=== PATIENT | female | born 2000 | race Caucasian/White ===

== ENCOUNTER 2023-08-05 09:42 | Emergency (ER) | payer OTHER ==
[2023-08-05] MEDS: Diphtheria,Pertussis(Acell),Tetanus Vaccine 0.5 ML Syringe IM ONE (11:57)
[2023-08-05] MEDS: Lidocaine 1% 10 ML MDV INJECT ONE (12:01)
[2023-08-05] MEDS: Acetaminophen/HYDROcodone 325-5 MG Tab PO ONE (12:58)
== END 2023-08-05 12:50 | disposition home or self-care (01) ==
LOC: JD.ED 09:42
DX: S01.352A Open bite of left ear, initial encounter (principal); S61.250A Open bite of right index finger without damage to nail, initial encounter; Z23 Encounter for immunization; F17.210 Nicotine dependence, cigarettes, uncomplicated; W54.0XXA Bitten by dog, initial encounter
CPT/HCPCS: 12001; 90471; 90715; 99283; A9270; J3490

== ENCOUNTER 2023-08-06 08:11 | Emergency (ER) | payer OTHER ==
[2023-08-06] MEDS: Ondansetron 4 MG/2 ML SDV IVPUSH ONE (09:11)
[2023-08-06] MEDS: Sodium Chloride 0.9% 10 ML Syringe FLUSH PRN (09:13)
[2023-08-06] MEDS: Sodium Chloride 0.9% 1,000 ML IV SCH (09:13)
[2023-08-06] MEDS: Ampicillin/Sulbactam Na 3 GM in Sodium Chloride 0.9% 100 ML IV ONE (09:14)
[2023-08-06 09:27] LABS: BASOPHILS PERCENT AUTO 0.2 % (0.0-1.0); EOSINOPHILS PERCENT AUTO 0.1 % (0.0-6.0); HEMATOCRIT 40.9 % (37.0-47.0); HEMOGLOBIN 14.1 gm/dl (12.0-16.0); IMMATURE GRAN ABSOLUTE AUTO 0.09 K/mm3 (0.00-0.05); IMMATURE GRAN PERCENT AUTO 0.5 % (0.0-0.4); LYMPHOCYTES ABSOLUTE AUTO 1.4 K/mm3 (1.0-4.8); LYMPHOCYTES PERCENT AUTO 7.4 % (24.0-44.0); MEAN CORPUSCULAR HEMOGLOBIN 28.8 pg (28.0-32.0); MEAN CORPUSCULAR HGB CONC 34.5 g/dl (32.0-36.0); MEAN CORPUSCULAR VOLUME 83.5 fl (83.0-99.0); MEAN PLATELET VOLUME 11.1 fl (9.4-12.3); MONOCYTES ABSOLUTE AUTO 1.7 K/mm3 (0.0-0.8); MONOCYTES PERCENT AUTO 8.6 % (0.0-8.0); NEUTROPHILS PERCENT AUTO 83.2 % (41.0-71.0); PLATELET COUNT,PLT 309 K/mm3 (150-400); WHITE BLOOD CELL COUNT,WBC 19.18 K/mm3 (3.9-11.3)
[2023-08-06 09:47] LABS: ANION GAP 15.7 (5-15); BUN/CREATININE RATIO 14.3 (14-18); C-REACTIVE PROTEIN 7.8 mg/dL (<1.0); CALCIUM 9.4 mg/dL (8.5-10.1); CREATININE 0.7 mg/dL (0.55-1.02); EST CRCL DRUG DOSING (CG) 100.55 mL/min; POTASSIUM,K 3.7 mEq/L (3.5-5.1)
[2023-08-06 10:07] LABS: SLIDE REVIEW ABNORMAL SMEAR
[2023-08-06] MEDS ORDERED: Ketorolac 30 MG/ML SDV IVPUSH ONE (10:48)
[2023-08-06] MEDS: Ketorolac 15 MG/ML SDV IVPUSH ONE (10:55)
== END 2023-08-06 11:03 ==
LOC: JD.ED 08:11
DX: M65.841 Other synovitis and tenosynovitis, right hand (principal); Z79.899 Other long term (current) drug therapy
CPT/HCPCS: 36415; 80048; 84703; 85025; 85652; 86140; 96365; 96375; 99284; J0295; J1885; J2405; J3490; J7030